=== PATIENT | female | born 1985 | race Caucasian/White ===

== ENCOUNTER 2018-10-15 21:54 | Emergency (ER) | payer OTHER ==
[~2018-10-15] VITALS: Ht 170.2 cm; Wt 90.8 kg
[2018-10-15] MEDS ORDERED: ONDANSETRON PF 4 MG/2 ML VIAL. ONE (22:07)
[2018-10-15] MEDS ORDERED: IV NORMAL SALINE 1,000ML 1,000 ML IV ONE ×2 (22:15→22:30)
[2018-10-15] MEDS ORDERED: ONDANSETRON PF 4 MG/2 ML VIAL. IV ONE (22:15)
[2018-10-15] MEDS ORDERED: DEXAMETHASONE SOD PHOS 10 MG/ML VIAL IV ONE (22:30)
[2018-10-15] MEDS ORDERED: SUMAtriptan SUCC 6 MG/0.5 ML VIAL SQ ONE (22:30)
[2018-10-15] MEDS ORDERED: diphenhydrAMINE 50 MG/ML VIAL IVP ONE (22:30)
[2018-10-15] MEDS ORDERED: METOCLOPRAMIDE HCL 10 MG/2 ML VIAL. IV ONE (22:30)
--- NOTE | 2018-10-15 22:52 | RAD ---
CT HEAD WO CONTRAST History: Severe headache for 3 hours, history of migraine headaches, nausea and vomiting Comparison: None. Technique: Noncontrast CT imaging was performed of the head. Exposure: One or more of the following individualized dose reduction techniques were utilized for this examination: 1. Automated exposure control 2. Adjustment of the mA and/or kV according to patient size 3. Use of iterative reconstruction technique. Findings: No acute extra-axial or parenchymal hemorrhage is identified. There is no significant intra-axial mass effect, midline shift, or extra-axial fluid collection. The vernon-white differentiation of the major vascular territories is preserved. The ventricles, sulci, and cisterns are within normal limits in size and configuration. The mastoid air cells and the visualized paranasal sinuses are aerated. No acute calvarial abnormality is identified. Impression: 1. No acute intracranial abnormality is identified. Electronically signed by: Tolu Gunter MD (10/15/2018 10:49 PM) [facility]
--- NOTE | 2018-10-15 23:12 | PHYS DOC ---
Adult General Chief Complaint Chief Complaint: HEADACHE HPI HPI Patient is a 33-year-old female who presents with complaint of severe headache that started a few hours ago. Patient states that this is the second worst headache that she's ever had. She does indicate that it is similar to her migraines. She states that pain is primarily on the right side of her head and she describes pain as throbbing. She does admit to photophobia as well as phonophobia and has had some nausea and vomiting which she states is not typical. She denies any fever. She also denies any chest pain or shortness of breath. Patient states that pain is worsened with movement and with noise.[] Review of Systems Review of Systems Constitutional: Denies fever or chills [] Eyes: Denies change in visual acuity, redness, or eye pain [] Respiratory: Denies cough or shortness of breath [] Cardiovascular: No additional information not addressed in HPI [] Neurologic: Complains of headache without focal weakness or sensory changes [] All other systems were reviewed and found to be within normal limits, except as documented in this note. Current Medications Current Medications Current Medications Medications (Trade) Dose Ordered Sig/Angelo Start Time Stop Time Status Last Admin Dose Admin Dexamethasone Sodium Phosphate (Decadron) 10 mg 1X ONCE 10/15/18 22:30 10/15/18 22:31 DC 10/15/18 22:46 10 MG Diphenhydramine HCl (Benadryl) 25 mg 1X ONCE 10/15/18 22:30 10/15/18 22:31 DC 10/15/18 22:46 25 MG Fentanyl Citrate (Fentanyl 2ml Vial) 75 mcg 1X ONCE 10/15/18 22:30 10/15/18 22:31 DC 10/15/18 22:46 75 MCG Metoclopramide HCl (Reglan Vial) 10 mg 1X ONCE 10/15/18 22:30 10/15/18 22:31 DC 10/15/18 22:46 10 MG Ondansetron HCl (Zofran) 4 mg 1X ONCE 10/15/18 22:15 10/15/18 22:24 DC 10/15/18 22:18 4 MG Sodium Chloride 1,000 ml @ 1,000 mls/hr 1X ONCE 10/15/18 22:30 10/15/18 23:29 Sumatriptan Succinate (Imitrex) 6 mg 1X ONCE 10/15/18 22:30 10/15/18 22:31 DC 10/15/18 22:46 6 MG Allergies Allergies Allergies Coded Allergies Type Severity Reaction Last Updated Verified No Known Drug Allergies 10/15/18 No Physical Exam Physical Exam Constitutional: Well developed, well nourished, in mild distress. [] HENT: Normocephalic, atraumatic, bilateral external ears normal, oropharynx moist, no oral exudates, nose normal. [] Eyes: PERRLA, EOMI, conjunctiva normal, no discharge. [] Neck: Normal range of motion, no tenderness, supple, no stridor. [] Cardiovascular:Heart rate regular rhythm, no murmur [] Lungs & Thorax: Bilateral breath sounds clear to auscultation [] Abdomen: Bowel sounds normal, soft. [] Skin: Warm, dry, no erythema, no rash. [] Extremities: No tenderness, no cyanosis, no clubbing, ROM intact. [] Neurologic: Alert and oriented X 3, no focal deficits noted. [] EKG EKG [] Radiology/Procedures Radiology/Procedures [] Impressions: PROCEDURE: CT HEAD WO CONTRAST CT HEAD WO CONTRAST History: Severe headache for 3 hours, history of migraine headaches, nausea and vomiting Comparison: None. Technique: Noncontrast CT imaging was performed of the head. Exposure: One or more of the following individualized dose reduction techniques were utilized for this examination: 1. Automated exposure control 2. Adjustment of the mA and/or kV according to patient size 3. Use of iterative reconstruction technique. Findings: No acute extra-axial or parenchymal hemorrhage is identified. There is no significant intra-axial mass effect, midline shift, or extra-axial fluid collection. The vernon-white differentiation of the major vascular territories is preserved. The ventricles, sulci, and cisterns are within normal limits in size and configuration. The mastoid air cells and the visualized paranasal sinuses are aerated. No acute calvarial abnormality is identified. Impression: 1. No acute intracranial abnormality is identified. Electronically signed by: Tolu Gunter MD (10/15/2018 10:49 PM) [facility] Course & Med Decision Making Course & Med Decision Making Pertinent Labs and Imaging studies reviewed. (See chart for details) [] Dragon Disclaimer Dragon Disclaimer This electronic medical record was generated, in whole or in part, using a voice recognition dictation system. Departure Departure: Impression: Primary Impression: Migraine Disposition: 01 HOME, SELF-CARE Condition: STABLE Referrals: PCP,UNKNOWN (PCP) Patient Instructions: Migraine Headache Scripts Codeine/Butalbital/Asa/Caffein (FIORINAL-COD [id number] CAP) 1 Each Capsule 1 EACH PO Q6HRS PRN for HEADACHE, #12 CAP Prov: ALIA BIRMINGHAM Jr., DO 10/15/18 Problem Qualifiers Primary Impression: Migraine Migraine type: unspecified Status migrainosus presence: without status migrainosus Intractability: not intractable Qualified Codes: G43.909 - Migraine, unspecified, not intractable, without status migrainosus ALIA BIRMINGHAM Jr., DO Oct 15, 2018 23:12
[2018-10-15] MEDS ORDERED: CODE1CAP8 PO (23:32)
[2018-10-15 23:33] VITALS: BP 140/98
== END 2018-10-15 23:45 | disposition home or self-care (01) ==
LOC: ER 21:54
DX: G43.909 Migraine, unspecified, not intractable, without status migrainosus (principal); R11.2 Nausea with vomiting, unspecified
CPT/HCPCS: 70450; 96361; 96372; 96374; 96375; 99284; J1100; J1200; J2405; J2765; J3010; J3030; 99285-25; J7030

== ENCOUNTER 2019-01-16 15:26 | Emergency (ER) | payer OTHER ==
[~2019-01-16] VITALS: Ht 170.2 cm; Wt 64.4 kg
[~2019-01-16 15:26] MED LIST: CODE1CAP8 PO
[2019-01-16] MEDS ORDERED: OXYMETAZOLINE 0.05% NASAL SPRAY 15ML BOTTLE. NS ONE ×2 (15:41→16:00)
[2019-01-16 15:46] VITALS: BP 123/91
[2019-01-16] MEDS ORDERED: OXYM15MI4 NS (16:03)
[2019-01-16] MEDS ORDERED: [UNRECOGNIZED DRUG - CODE] MC (16:03)
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
== END 2019-01-16 16:09 | disposition home or self-care (01) ==
LOC: ER 15:26
DX: R04.0 Epistaxis (principal); I10 Essential (primary) hypertension; G43.909 Migraine, unspecified, not intractable, without status migrainosus
CPT/HCPCS: 99282